=== PATIENT | male | born 1970 | race Caucasian/White ===

== ENCOUNTER 2017-05-12 22:52 | Emergency (ER) | payer OTHER ==
[~2017-05-12] VITALS: Ht 170.2 cm; Wt 76.2 kg
[2017-05-12 22:53] VITALS: TEMP 36.7; Ht 170.2 cm; Wt 76.2 kg
[2017-05-12] MEDS ORDERED: DiphenhydrAMINE HCL 50 MG/ML VIAL IV STA (23:12)
[2017-05-12] MEDS ORDERED: PROCHLORPERAZINE 5 MG/ML 2 ML VIAL IV STA (23:12)
[2017-05-12] MEDS ORDERED: SODIUM CHLORIDE 0.9% 1000ML 1,000 ML IV STA (23:12)
[2017-05-12] MEDS ORDERED: KETOROLAC TROMETHAMINE 30 MG/ML VIAL IV STA (23:12)
[2017-05-12] MEDS ORDERED: DEXAMETHASONE SOD INJ 10 MG/ML VIAL IV ONE (23:15)
[2017-05-12 23:37] LABS: BASO % 0.2 %; BASO ABS # 0.02 K/uL (0-0.2); COMPLETE YES; EOS % 3.6 %; HEMATOCRIT 43.6 % (42-52); IG% 0.1 %; LYMPH % 21.5 %; LYMPH ABS # 1.75 K/uL (1.2-3.4); MEAN CELL VOLUME 86.7 fL (80-100); MEAN CORPUSCULAR HGB CONC 34.6 g/dl (32-36); NEUT % 64.6 %; PLATELET COUNT 129 K/uL (130-400); RED BLOOD COUNT 5.03 M/uL (4.7-6.1); WHITE BLOOD COUNT 8.14 K/uL (4.8-10.8)
[2017-05-12] MEDS ORDERED: PROPRANOLOL LA PO (23:46)
[2017-05-12] MEDS ORDERED: ATOR10TA88 PO (23:47)
[2017-05-12] MEDS ORDERED: CLR10 PO (23:47)
[2017-05-12] MEDS ORDERED: HYDR2TAB48 PO (23:49)
[2017-05-12] MEDS ORDERED: TAMS0.4C38 PO (23:50)
[2017-05-12 23:55] LABS: BUN/CREATININE RATIO 12.6 (10-20); CALCIUM 9.6 mg/dl (8.5-10.1); CREATININE 1.6 mg/dl (0.60-1.40); POTASSIUM 4.5 mmol/L (3.5-5.1)
--- NOTE | 2017-05-13 00:50 | EMERGENCY ROOM VISIT NOTE ---
History Report prepared by Tato: Elis Fitzpatrick Under the Supervision of: Dr. Michael Chauhna D.O. First contact with patient: 22:58 Chief Complaint: HEADACHE Stated Complaint: KIDNEY STONE,HEADACHE-REACTION TO MORPHINE?? History of Present Illness The patient is a 46 year old male who presents to the Emergency Room with complaints of persistent headache starting 1600 today. The patient was diagnosed with a 5 cm left kidney stone 3 days ago in [place]. He was prescribed morphine and a muscle relaxant. He has been having minor headaches after taking morphine. Today at 1600, he started having a headache at the base of his skull and on the right and left sides. He describes his pain as stabbing. He does have a history of migraines. He has had previous migraines which feel similar. He took Zomig to no significant relief. He also took Tylenol and ibuprofen to no relief. He reports kidney pain, nausea, and neck pain. Source of History: patient, spouse/significant other Onset: 1600 today Position: head Quality: stabbing Timing: other (persistent) Associated Symptoms: + neck pain, + nausea Note: Pt reports kidney pain. Review of Systems See HPI for pertinent positives & negatives. A total of 10 systems reviewed and were otherwise negative. Past Medical & Surgical Medical Problems: (1) Migraine Family History No pertinent family history stated. Social History Smoking Status: Never Smoker Marital Status: Housing Status: lives with significant other Occupation Status: employed Current/Historical Medications Scheduled Atorvastatin (Lipitor), 10 MG PO QPM Loratadine (Claritin), 10 MG PO DAILY Tamsulosin Hcl (Flomax), 0.4 MG PO DAILY X 2 WEEKS [Propranolol La], 80 MG PO DAILY Scheduled PRN Hydromorphone Hcl (Dilaudid), 1 MG PO Q4-6H PRN for Pain Allergies Coded Allergies: Diazepam (Verified Allergy, Intermediate, HIVES, 05/12/17) Oxycodone (Verified Allergy, Intermediate, HIVES, 05/12/17) Physical Exam Vital Signs Date Time Temp Pulse Resp B/P (MAP) Pulse Ox O2 Delivery O2 Flow Rate FiO2 05/13/17 01:11 87 20 154/76 97 05/12/17 23:46 58 20 158/89 98 Room Air 05/12/17 22:53 36.7 55 16 183/105 100 Room Air Physical Exam CONSTITUTIONAL/VITAL SIGNS: Reviewed / noted above. GENERAL: Non-toxic in appearance. INTEGUMENTARY: Warm, dry, and [place]. HEAD: Normocephalic. EYES: without scleral icterus or trauma. ENT/OROPHARYNX: clear and moist. LYMPHADENOPATHY/NECK: Is supple without lymphadenopathy or meningismus. RESPIRATORY: Lungs clear and equal. CARDIOVASCULAR: Regular rate and rhythm. GI/ABDOMEN: Soft and nontender. No organomegaly or pulsatile mass. No rebound or guarding. Normal bowel sounds. EXTREMITIES: Warm and well perfused. BACK: No CVA tenderness. NEUROLOGICAL: Intact without focal deficits. PSYCHIATRIC: normal affect. MUSCULOSKELETAL: Normally developed with good muscle tone. Medical Decision & Procedures ER Provider Diagnostic Interpretation: Radiology results as stated below per my review and [facility] radiologist interpretation: CT Head: No ICH, mass effect, or edema. Kramer-white matter differentiation is preserved. No evidence of skull fracture. Clear sinuses and mastoid air cells. Laboratory Results 05/12/17 23:25 Red Blood Count 5.03, Mean Corpuscular Volume 86.7, Mean Corpuscular Hemoglobin 30.0, Mean Corpuscular Hemoglobin Concent 34.6, Mean Platelet Volume 10.0, Neutrophils (%) (Auto) 64.6, Lymphocytes (%) (Auto) 21.5, Monocytes (%) (Auto) 10.0, Eosinophils (%) (Auto) 3.6, Basophils (%) (Auto) 0.2, Neutrophils # (Auto ) 5.26, Lymphocytes # (Auto) 1.75, Monocytes # (Auto) 0.81, Eosinophils # (Auto ) 0.29, Basophils # (Auto) 0.02 05/12/17 23:25 Test 05/12/17 23:25 White Blood Count 8.14 K/uL (4.8-10.8) Red Blood Count 5.03 M/uL (4.7-6.1) Hemoglobin 15.1 g/dL (14.0-18.0) Hematocrit 43.6 % (42-52) Mean Corpuscular Volume 86.7 fL (80-100) Mean Corpuscular Hemoglobin 30.0 pg (25-34) Mean Corpuscular Hemoglobin Concent 34.6 g/dl (32-36) Platelet Count 129 K/uL (130-400) Mean Platelet Volume 10.0 fL (7.4-10.4) Neutrophils (%) (Auto) 64.6 % Lymphocytes (%) (Auto) 21.5 % Monocytes (%) (Auto) 10.0 % Eosinophils (%) (Auto) 3.6 % Basophils (%) (Auto) 0.2 % Neutrophils # (Auto) 5.26 K/uL (1.4-6.5) Lymphocytes # (Auto) 1.75 K/uL (1.2-3.4) Monocytes # (Auto) 0.81 K/uL (0.11-0.59) Eosinophils # (Auto) 0.29 K/uL (0-0.5) Basophils # (Auto) 0.02 K/uL (0-0.2) RDW Standard Deviation 39.1 fL (36.4-46.3) RDW Coefficient of Variation 12.2 % (11.5-14.5) Immature Granulocyte % (Auto) 0.1 % Immature Granulocyte # (Auto) 0.01 K/uL (0.00-0.02) Erythrocyte Sedimentation Rate 5 mm/hr (0-14) Anion Gap 4.0 mmol/L (3-11) Est Creatinine Clear Calc Drug Dose 52.8 ml/min Estimated GFR () 58.2 Estimated GFR (Non- 50.2 BUN/Creatinine Ratio 12.6 (10-20) Calcium Level 9.6 mg/dl (8.5-10.1) Laboratory results as stated above per my review. Medications Administered Medications (Trade) Dose Ordered Sig/Liana Route Start Time Stop Time Status Last Admin Dose Admin Ketorolac Tromethamine (Toradol Inj) 30 mg NOW STAT IV 05/12/17 23:12 05/12/17 23:16 DC 05/12/17 23:39 30 MG Sodium Chloride 1,000 ml @ 999 mls/hr Q1H1M STAT IV 05/12/17 23:12 05/13/17 00:12 DC 05/12/17 23:39 999 MLS/HR Prochlorperazine Edisylate (Compazine Inj) 10 mg NOW STAT IV 05/12/17 23:12 05/12/17 23:16 DC 05/12/17 23:39 10 MG Dexamethasone Sodium Phosphate (Decadron Inj) 10 mg NOW ONCE IV 05/12/17 23:15 05/12/17 23:16 DC 05/12/17 23:39 10 MG Diphenhydramine HCl (Benadryl Inj) 50 mg NOW STAT IV 05/12/17 23:12 05/12/17 23:16 DC 05/12/17 23:38 50 MG ED Course 2300: Previous medical records were reviewed. The patient was evaluated in room A10. A complete history and physical examination was performed. 2312: Benadryl Inj 50 mg IV, Compazine Inj 10 mg IV, NSS 1000 ml @ 999 mls/hr IV , Toradol Inj 30 mg IV. 2315: Decadron Inj 10 mg IV. 0051: On reevaluation, the patient is resting comfortably. I discussed the results and findings with the patient. He verbalized agreement of the treatment plan. He was discharged home. Medical Decision Differential includes: Acute intracranial bleed, trauma, meningitis, encephalitis, increased intracranial pressure, mass or mass effect, facial or dental infection, temporal arteritis, CVA, TIA, acute hypertensive emergency, sinusitis, carbon monoxide exposure. This is a 46-year-old male who presents to the ED with a chief complaint of a headache. The patient's headache is in the posterior aspect of his head and somewhat bitemporal as well. He states that this started around 4:56 PM today. He also reports that he had a kidney stone on Sunday on the left side. He was discharged with hydrocodone and he feels that his headache might be related to this. He is unsure. The patient does not report any vomiting,fevers or trauma. His physical exam was unremarkable. He might have a small amount of tenderness to palpation of the posterior neck. His initial blood pressure was elevated at 183/105. This improved with some medication at 158/89. CBC is normal. A sedimentation rate is normal. BUN is 20 and creatinine is 1.6. A CT scan of the brain did not show acute disease. The patient received IV Toradol, IV Compazine, IV Decadron, IV Benadryl and IV fluids. He was told the results of the test. He is felt to be stable for discharge. His symptoms did improve somewhat this. Medication Reconcilliation Current Medication List: was personally reviewed by me Blood Pressure Screening Patient's blood pressure: Elevated blood pressure Blood pressure disposition: Referred to PCP Impression Primary Impression: Headache Scribe Attestation The scribe's documentation has been prepared under my direction and personally reviewed by me in its entirety. I confirm that the note above accurately reflects all work, treatment, procedures, and medical decision making performed by me. Departure Information Dispostion Home / Self-Care Referrals No Doctor, Assigned (PCP) Patient Instructions Headache Pain, [facility] Additional Instructions Follow-up with your doctor for further care and evaluation in 1-2 days. Return to the emergency department for worsening or new symptoms or any concerns. You have been examined and treated today on an emergency basis only. This is not a substitute for, or an effort to provide, complete comprehensive medical care. It is impossible to recognize and treat all injuries or illnesses in a single emergency department visit. It is therefore important that you follow up closely with your doctor. Call as soon as possible for an appointment.
[2017-05-13 01:11] VITALS: BP 154/76; PULSE 87; O2SAT 97
--- NOTE | 2017-05-13 07:15 | DIAGNOSTIC IMAGING REPORT ---
CT HEAD WITHOUT CONTRAST (CT) CLINICAL HISTORY: Severe headache COMPARISON STUDY: No previous studies for comparison. TECHNIQUE: Axial CT of the brain is performed from the vertex to the skull base. IV contrast was not administered for this examination. A dose lowering technique was utilized adhering to the principles of ALARA. CT DOSE: 614.27 mGy.cm FINDINGS: No intra or extra-axial mass lesions are visualized. There is no CT evidence of acute cortical infarction. There is no evidence of midline shift. There is no acute hemorrhage. No calvarial fractures are visualized. There is no evidence of pathologic ventricular dilatation. There is no evidence of acute sinusitis IMPRESSION: No acute intracranial findings Electronically signed by: Barrington Becerra M.D. 05/13/2017 7:13 AM Dictated Date/Time: 05/13/2017 7:13 AM
== END 2017-05-13 01:12 | disposition home or self-care (01) ==
LOC: C.EDB 22:53 → C.EDA 05-13 01:12
DX: R51 Headache (principal); Z79.899 Other long term (current) drug therapy; Z87.442 Personal history of urinary calculi